=== PATIENT | female | born 1925 | race Caucasian/White ===

== ENCOUNTER 2016-09-30 02:10 | Inpatient (IN) | payer MEDICARE, BC ==
--- NOTE | 2016-09-30 02:35 | ED Physician Chart ---
Chief Complaint/HPI - Patient Information Date Seen:: 09/23/16 Time Seen:: 02:15 Chief Complaint:: generalized weakness History of Present Illness:: patient has had generalized weakness (especially of hands) for three days. Tingling of legs started today. No chest pain or shortness of breath. Allergies:: Allergies Allergy/AdvReac Type Severity Reaction Status Date / Time No Known Allergies Allergy Verified 09/30/16 02:16 Vitals:: Vital Signs - 8 hr 09/30/16 02:17 Temp 97.5 F HR 90 RR 20 BP 135/74 O2 Sat % 97 Historian:: Patient Review of Systems - Review of Systems General/Constitutional: Weakness Skin: No skin lesions Head: No headache Eyes: Acuity change ENT: No earache Neck: No neck pain Cardio Vascular: No chest pain Pulmonary: No SOB GI: No nausea, No vomiting G/U: No dysuria Musculoskeletal: No bone or joint pain Endocrine: No polyuria, No polydipsia Psychiatric: No prior psych history, No homicidal ideation Hematopoietic: No bruising Allergic/Immuno: No urticaria Neurological: No syncope Past Medical History - Past Medical History Past Medical History: DM Family History: HTN Social History: Non Smoker, No Alcohol Surgical History: other (bilateral knee replacements) Psychiatricy History: None Medication: Reviewed Family Medical History - Family Member Mother History Unknown: Yes Physical Exam - Physical Examination General/Constitutional: Awake, Well-developed, well-nourished, No distress Head: Atraumatic Eyes: Lids, conjuctiva normal, PERRL Skin: Nl inspection, No rash ENMT: External ears, nose nl, TM canals nl Neck: No nuchal rigidity Respiratory: Nl effort/Exclusion, Clear to Auscultation, No Wheeze/Rhonchi/Rales Cardio Vascular: RRR GI: No tenderness/rebounding/guarding, No organomegaly : No CVA tenderness Neuro/Psych: No focal deficits Misc: No paraspinal tenderness Labs/Radiology/EKG Results - Lab Results Results: Laboratory Results - last 24 hr 09/30/16 09/30/16 09/30/16 02:35 02:35 02:35 WBC 5.1 RBC 3.78 L Hgb 11.2 L Hct 33.3 L MCV 88.0 MCH 29.7 MCHC Differential 33.7 RDW 13.1 Plt Count 200 MPV 6.7 Neutrophils % 59.2 Lymphocytes % 26.2 Monocytes % 11.3 H Eosinophils % 2.6 Basophils % 0.7 Sodium 139 Potassium 3.7 Chloride 101 Carbon Dioxide 27.4 Anion Gap 14.3 BUN 17 Creatinine 0.7 Est GFR ( Amer) TNP Est GFR (Non-Af Amer) TNP BUN/Creatinine Ratio 24.3 Glucose 122 H Calcium 9.0 Magnesium Troponin I < 0.01 L B-Natriuretic Peptide 33.1 09/30/16 02:35 WBC RBC Hgb Hct MCV MCH MCHC Differential RDW Plt Count MPV Neutrophils % Lymphocytes % Monocytes % Eosinophils % Basophils % Sodium Potassium Chloride Carbon Dioxide Anion Gap BUN Creatinine Est GFR ( Amer) Est GFR (Non-Af Amer) BUN/Creatinine Ratio Glucose Calcium Magnesium 1.8 L Troponin I B-Natriuretic Peptide - EKG Interpretations Rhythm: NSR Gamaliel: normal Rate: 85 Comments:: [facility] ED Septic Shock - . Is Septic Shock (SBP<90, OR Lactate>4 mmol\L) present?: No - <6hrs of presentation: Vital Signs: Vital Signs - 8 hr 09/30/16 02:17 Temp 97.5 F HR 90 RR 20 BP 135/74 O2 Sat % 97 Reassessment (Disposition) - Reassessment Reassessment Condition:: Unchanged - Diagnosis Diagnosis:: anemia; generalized weakness; parasthesias - Patient Disposition Admitted to:: Med/Surg Spoke to:: Clinton Velasco Admitting Medical Physician:: Clinton Velasco Condition at Disposition:: Stable, Unchanged
[2016-09-30 02:46] LABS: % BASOPHILS 0.7 % (0.0-2.0); % EOSINOPHILS 2.6 % (0.0-5.0); % LYMPHOCYTES 26.2 % (20.0-50.0); % MONOCYTES 11.3 % (2.0-10.0); % NEUTROPHILS 59.2 % (40.0-80.0); HEMATOCRIT 33.3 % (35.0-45.0); HEMOGLOBIN 11.2 gm/dL (11.7-16.1); MEAN CORPUSCULAR HEMOGLOBIN 29.7 pg (27.0-31.0); MEAN CORPUSCULAR HGB CONC 33.7 pg (28.0-36.0); MEAN PLATELET VOLUME 6.7 fl; NEUTROPHILE ABSOLUTE 3.1 Th/cmm (1.8-8.0); PLATELET COUNT 200 Th/cmm (150-400); RED BLOOD COUNT 3.78 Mil/cmm (3.80-5.20); RED CELL DISTRIBUTION WIDTH 13.1 % (11.5-20.0); WHITE BLOOD COUNT 5.1 Th/cmm (4.8-10.8)
[2016-09-30 03:00] LABS: ANION GAP 14.3 (7.0-16.0); BUN - UREA NITROGEN 17 mg/dL (7-25); BUN/CREATININE RATIO 24.3; CARBON DIOXIDE 27.4 mEq/L (21.0-31.0); CHLORIDE 101 mEq/L (98-107); CREATININE - SERUM 0.7 mg/dL (0.6-1.2); GLUCOSE 122 mg/dL (70-105); POTASSIUM SERUM 3.7 mEq/L (3.5-5.1); SODIUM SERUM 139 mEq/L (136-145)
[2016-09-30 03:06] LABS: BNP 33.1 pg/mL (5.0-100.0)
[2016-09-30] MEDS: Sodium Chloride 0.9% 1,000 ML IV SCH ×2 (05:46→21:23)
[2016-09-30 06:22] VITALS: BP 140/62
[2016-09-30] MEDS: Morphine Sulfate 2 mg/mL 1mL Syr IVP PRN ×3 (06:29→14:48)
[2016-09-30] MEDS: INSULIN ASPART SLIDING SCALE 100 UNITS/ML UNIT SUBQ SCH ×4 (06:33→21:08)
[2016-09-30] MEDS ORDERED: Potassium Chloride 40 MEQ, Lidocaine 1% 20mL Vial 25 MG in Sodium Chloride 0.9% 250 ML IV PRN (09:07)
[2016-09-30] MEDS ORDERED: Morphine Sulfate 2 mg/mL 1mL Syr IVP PRN (09:07)
[2016-09-30] MEDS ORDERED: Potassium Chloride 20 mEq ER Tab PO PRN (09:07)
[2016-09-30] MEDS ORDERED: Influenza Vaccine 0.5 mL Syr IM ONE (11:00)
[2016-09-30] MEDS ORDERED: Pneumococcal Vaccine 0.5 mL Vial IM ONE (11:00)
--- NOTE | 2016-09-30 11:19 | Diagnostic Imaging Report ---
CHEST X-RAY: AP view INDICATION: Weakness COMPARISON: None FINDINGS: Chronic lung changes are seen with increased left basal lung markings. There may be a hiatal hernia. Heart size normal. Atherosclerotic vascular disease is noted. Degenerative changes of spine and shoulders are noted. IMPRESSION: Chronic lung changes with increased left basal lung markings which may be chronic, however, atelectasis versus infiltrate and small left effusion cannot be excluded. Consider further assessment dedicated PA and lateral views. Possible hiatal hernia. Atherosclerotic vascular disease.
--- NOTE | 2016-09-30 12:33 | History & Physical ---
CHIEF COMPLAINT: Intractable pain and numbness and tingling and shooting pains in the hand and arms bilaterally. HISTORY OF PRESENT ILLNESS: The patient is a pleasant 89-year-old female. She has past medical history of neuropathic pain. However, she states it only started a couple of weeks ago when she takes Neurontin at home. However, last night, the pain was so severe and it was not controlled with the Neurontin, so she came to the ER. She also has history of diabetes and unsteady gait. She is unable to give me full history as she does not know what other medications she takes. She did not bring her home medications. Her niece or another relative will be bringing them later. PAST MEDICAL HISTORY: Significant for diabetes, peripheral neuropathy. SOCIAL HISTORY: She used to work as a secondary school registrar. No history of alcohol, tobacco, or drug abuse. FAMILY HISTORY: Her daughter had breast cancer and ovarian cancer. She is in her 50s now. ALLERGIES: SHE IS APPARENTLY ALLERGIC TO PROCHLORPERAZINE. PAST SURGICAL HISTORY: She has history of bilateral knee replacement. MEDICATIONS: As mentioned above. The patient will have a relative bring her medications. REVIEW OF SYSTEMS: GENERAL: Positive for recent fatigue, but no fevers or chills. HEENT: No recent head trauma, change in vision, taste, hearing, or smell. Oral: No recent pain or discharge. NECK: No recent tracheal deviation or JVD. CARDIOVASCULAR: Denies any chest pain or palpitation. ENDOCRINE: She has a history of diabetes. NEUROLOGIC: Positive for neuropathic pain in upper extremities bilaterally. PSYCHIATRIC: No history of psychosis or hallucinations. ABDOMEN: No recent pain or distention. GASTROINTESTINAL: Denies any nausea, vomiting or diarrhea. PSYCHIATRIC: No history of psychosis or hallucinations or depression. PHYSICAL EXAMINATION: VITAL SIGNS: Temperature 98.5 degrees, heart rate is 88, respirations 18, blood pressure 140/62. No pain. GENERAL: No acute distress, awake, alert, but weak and anxious because of the pain. HEENT: Normocephalic, atraumatic. Pupils are round and reactive to light. NECK: Trachea is midline. No JVD. CARDIOVASCULAR: Regular rate and rhythm. PSYCHIATRIC: No psychosis hallucination. MUSCULOSKELETAL: She has intention tremor of the hands bilaterally, severe, but no tremor while resting. NEUROLOGIC: She has numbness and tingling and shooting pains in upper extremities bilaterally. EXTREMITIES: There is no edema. MUSCULOSKELETAL: Decreased muscle strength in upper and lower extremities. PSYCHIATRIC: No psychosis or hallucinations. RESPIRATORY: Decreased breath sounds bilaterally. LABORATORY DATA: Some of the labs are pending. White count is 5.1, hemoglobin 11.2, platelet count is 200,000. Sodium 139, potassium 3.7, chloride 101, bicarbonate 27.4, BUN 17, creatinine 0.7, glucose 114. Troponin less than 0.01. Magnesium is 1.8. UA and chest x-ray are pending. ASSESSMENT: 1. Intractable bilateral upper extremity pain. 2. Severe peripheral neuropathy. 3. Unstable gait 4. Diabetes mellitus. 5. Hypomagnesemia. 6. Possible Parkinson disease. PLAN: The patient meets the criteria for Parkinson's exam, least clinically speaking. I have started on the Neurontin. I will also consider starting Sinemet and see if there is improvement. C-spine x-ray series has been ordered because of the upper extremity numbness, tingling and pain. Continue fingerstick blood sugars and regular insulin sliding scale. I will replenish the magnesium as well. JOB# [id number]
[2016-09-30] MEDS: Carbidopa/Levodopa 10/100 mg Tab PO SCH ×3 (14:02→21:01)
[2016-09-30 17:32] LABS: URINE COLOR YELLOW; URINE GLUCOSE (UA) NEGATIVE (NEGATIVE)
[2016-09-30 17:33] LABS: URINE BILIRUBIN NEGATIVE (NEGATIVE); URINE BLOOD TRACE (NEGATIVE); URINE KETONE NEGATIVE (NEGATIVE)
[2016-09-30 17:34] LABS: URINE PH 6.5; URINE PROTEIN TRACE mg/dL (NEGATIVE)
[2016-09-30 17:35] LABS: URINE RBC 0-2 /hpf (0-5)
[2016-09-30 17:44] LABS: URINE BACTERIA MANY /hpf (NONE SEEN); URINE EPITHELIAL CELLS NONE SEEN /lpf (FEW)
[2016-09-30] MEDS ORDERED: ROPINIROLE HCL 5 MG PO SCH (21:00)
[2016-10-01] MEDS: Morphine Sulfate 2 mg/mL 1mL Syr IVP PRN ×2 (01:00→16:18)
[2016-10-01 06:26] LABS: % BASOPHILS 0.9 % (0.0-2.0); % EOSINOPHILS 2.5 % (0.0-5.0); % LYMPHOCYTES 20.9 % (20.0-50.0); % MONOCYTES 10.3 % (2.0-10.0); % NEUTROPHILS 65.4 % (40.0-80.0); HEMATOCRIT 34.1 % (35.0-45.0); HEMOGLOBIN 11.8 gm/dL (11.7-16.1); MEAN CELL VOLUME 87.7 fl (81-100); MEAN CORPUSCULAR HEMOGLOBIN 30.5 pg (27.0-31.0); MEAN CORPUSCULAR HGB CONC 34.8 pg (28.0-36.0); MEAN PLATELET VOLUME 7.3 fl; NEUTROPHILE ABSOLUTE 3.7 Th/cmm (1.8-8.0); PLATELET COUNT 180 Th/cmm (150-400); RED BLOOD COUNT 3.88 Mil/cmm (3.80-5.20); RED CELL DISTRIBUTION WIDTH 12.9 % (11.5-20.0); WHITE BLOOD COUNT 5.7 Th/cmm (4.8-10.8)
[2016-10-01 06:53] LABS: ANION GAP 6.4 (7.0-16.0); BUN - UREA NITROGEN 13 mg/dL (7-25); BUN/CREATININE RATIO 18.6; CALCIUM SERUM 8.9 mg/dL (8.6-10.3); CARBON DIOXIDE 27.6 mEq/L (21.0-31.0); CHLORIDE 109 mEq/L (98-107); CREATININE - SERUM 0.7 mg/dL (0.6-1.2); GLUCOSE 109 mg/dL (70-105); SODIUM SERUM 139 mEq/L (136-145)
[2016-10-01] MEDS: INSULIN ASPART SLIDING SCALE 100 UNITS/ML UNIT SUBQ SCH ×4 (07:24→21:06)
[2016-10-01] MEDS: Carbidopa/Levodopa 10/100 mg Tab PO SCH (08:19)
[2016-10-01] MEDS: cefTRIAXone 1 GM in Sodium Chloride 0.9% 50 ML IV SCH (11:41)
[2016-10-01] MEDS: Sodium Chloride 0.9% 1,000 ML IV SCH (17:56)
--- NOTE | 2016-10-01 21:29 | Admit Criteria Form ---
Admit Criteria Forms - Admit Criteria Diagnosis: ANEMIA, IRON DEFICIENCY OR UNSPECIFIED Clinical Indications for Inpatient Care (Place 'X' for any and all applicable criteria): Admission is indicated for ANY ONE of the following(1)(2)(3)(4)(5)(6)(7): [X] I. Inpatient admission required rather than observation care (Also use Anemia, Iron Deficiency or Unspecified: Observation Care guideline as appropriate) because of ANY ONE of the following: [] a) Hemodynamic instability that is severe or persistent [] b) Active bleeding that cannot be rapidly controlled [] c) CVS symptoms (i.e., dyspnea, chest pain, heart failure) that are severe or persistent [] d) Neurologic symptoms (i.e., cognitive impairment, recurrent syncope or near syncope) that are severe or persistent [] e) Cardiac arrhythmias of immediate concern [] f) Acute peripheral ischemia (e.g., pulseless, cool, mottled, or cyanotic extremity) [] g) High-risk low platelet count [] h) Acute renal failure [] i) Ongoing transfusion for blood loss (greater than 2 units) [] j) IV fluid to replace significant ongoing (eg, >24 hours) losses (> 3 L/m2 per day) [] k) Pulmonary artery catheter monitoring [] l) Supplemental oxygen or respiratory treatments for over 24 hours that are performable only in acute inpatient setting [] m) Immediate inpatient surgery [X] n) Other condition, treatment or monitoring requiring inpatient admission [] II Active massive hemorrhage [] III. Active hemolysis with rapidly progressive anemia [A](6) Extended stay beyond goal length of stay may be needed for (17)(18) []a) Diagnosed cause of anemia requiring longer hospitalization (eg, active GI bleeding, immune hemolysis requiring electrophoresis, complications of malignancy requiring acute care []b) Continued emergent anemia indicators (23) []c) Transfusion reactions []d) Associated leukopenia or thrombocytopenia needing inpatient care []e) Active comorbidities (eg, renal failure, heart failure) The original [employer] content created by [employer] has been revised. The portions of the content which have been revised are identified through the use of italic text or in bold. [employer] has neither reviewed nor approved the modified material. All other unmodified content is copyright [employer]. Please see references footnoted in the original [facility] edition 2016 Admit Criteria Met?: Yes
[2016-10-02 06:26] LABS: % BASOPHILS 0.6 % (0.0-2.0); % EOSINOPHILS 0.7 % (0.0-5.0); % MONOCYTES 10.5 % (2.0-10.0); % NEUTROPHILS 79.2 % (40.0-80.0); HEMATOCRIT 34.5 % (35.0-45.0); HEMOGLOBIN 11.5 gm/dL (11.7-16.1); MEAN CELL VOLUME 87.6 fl (81-100); MEAN CORPUSCULAR HEMOGLOBIN 29.2 pg (27.0-31.0); MEAN CORPUSCULAR HGB CONC 33.3 pg (28.0-36.0); MEAN PLATELET VOLUME 7.4 fl; NEUTROPHILE ABSOLUTE 6.7 Th/cmm (1.8-8.0); PLATELET COUNT 184 Th/cmm (150-400); RED BLOOD COUNT 3.94 Mil/cmm (3.80-5.20); RED CELL DISTRIBUTION WIDTH 12.8 % (11.5-20.0)
[2016-10-02 06:41] LABS: WHITE BLOOD COUNT 8.6 Th/cmm (4.8-10.8)
[2016-10-02] MEDS: INSULIN ASPART SLIDING SCALE 100 UNITS/ML UNIT SUBQ SCH ×4 (07:02→22:15)
[2016-10-02 07:05] LABS: ANION GAP 9.4 (7.0-16.0); BUN - UREA NITROGEN 16 mg/dL (7-25); BUN/CREATININE RATIO 22.9; CALCIUM SERUM 8.5 mg/dL (8.6-10.3); CARBON DIOXIDE 23.7 mEq/L (21.0-31.0); CHLORIDE 105 mEq/L (98-107); CREATININE - SERUM 0.7 mg/dL (0.6-1.2); GLUCOSE 121 mg/dL (70-105); POTASSIUM SERUM 4.1 mEq/L (3.5-5.1); SODIUM SERUM 134 mEq/L (136-145)
[2016-10-02] MEDS: Morphine Sulfate 2 mg/mL 1mL Syr IVP PRN (08:08)
[2016-10-02] MEDS: Sodium Chloride 0.9% 1,000 ML IV SCH (08:09)
[2016-10-02] MEDS: cefTRIAXone 1 GM in Sodium Chloride 0.9% 50 ML IV SCH (12:13)
--- NOTE | 2016-10-02 20:38 | Discharge Summary ---
CAUSE OF ADMISSION: The patient is a pleasant 89-year-old female. She has history of neuropathic pain and Parkinson's disease. She states that the pain started a couple of weeks ago and she takes Neurontin at home. The pain was so severe that she came to the ER. She also has history of diabetes and unsteady gait. She was unable to give me full history. She does not know her medication, but her niece brought them in later. ADMITTING DIAGNOSES: 1. Intractable bilateral upper extremity pain. 2. Severe peripheral neuropathy. 3. Unstable gait 4. Diabetes mellitus. 5. Hypomagnesemia. 6. Parkinson's disease with exacerbation. DISCHARGE DIAGNOSES: 1. Intractable bilateral upper extremity pain. 2. Severe peripheral neuropathy. 3. Unstable gait 4. Diabetes mellitus. 5. Hypomagnesemia. 6. Parkinson's disease with exacerbation. SUMMARY OF HOSPITAL COURSE: The patient thought she had Parkinson's, but she was not sure. Later, I reviewed the meds and she does take Requip and she indeed has Parkinson's. She had tremor and had exacerbation as well. I started her on Sinemet. C-spine x-ray was ordered along with UA. She was found to have a UTI. It is E. coli susceptible to Macrobid. Today, she is anxious to go home. She was also given magnesium as a supplement. PHYSICAL EXAMINATION: VITAL SIGNS: Temperature 98.1 degrees, heart rate ____, respirations 18, blood pressure 122/68. No pain. GENERAL: No acute distress, awake. NECK: Trachea is midline. CARDIOVASCULAR: Regular rate and rhythm. SKIN: No rashes. PSYCHIATRIC: No psychosis or hallucinations. NEUROLOGIC: No evidence of acute stroke or seizure activity. Numbness, tingling has improved. Chest x-ray does not show any acute abnormalities. I have also ordered a C-spine x-ray, but the patient does not want to wait, she wants to go home. Chest x-ray shows chronic lung changes with increased left basal lung markings, which may be chronic, possible hiatal hernia. There is a possibility of a possible infiltrate versus atelectasis, but the patient is asymptomatic as far as pneumonia is concerned. The rest of the labs are as the following: UA is positive for UTI. White count is 8.6, hemoglobin 11.5, platelet count is 184,000. Sodium 134, potassium 4.1, chloride 105, bicarbonate 23.7, BUN 16, creatinine 0.7, glucose 119, calcium is 8.5. PROGNOSIS: Fair. ACTIVITY: As tolerated. DISPOSITION: I have offered the patient to do a SNF eval to see if she qualifies it because she lives alone; however, she insists on going home. She states that her niece comes and helps her out. I will also set up home health. MEDICATIONS: I have given her a script for Macrobid 100 mg p.o. b.i.d. for UTI. She is to follow with her primary care doctor within one week of discharge. Over 30 minutes spent on the discharge. JOB# [id number]
[2016-10-03] MEDS: Morphine Sulfate 2 mg/mL 1mL Syr IVP PRN ×2 (01:58→06:16)
[2016-10-03] MEDS: Sodium Chloride 0.9% 1,000 ML IV SCH (06:18)
[2016-10-03] MEDS: INSULIN ASPART SLIDING SCALE 100 UNITS/ML UNIT SUBQ SCH (06:54)
[2016-10-03 07:45] LABS: ANION GAP 7.1 (7.0-16.0); BUN - UREA NITROGEN 14 mg/dL (7-25); BUN/CREATININE RATIO 23.3; CALCIUM SERUM 8.4 mg/dL (8.6-10.3); CHLORIDE 108 mEq/L (98-107); CREATININE - SERUM 0.6 mg/dL (0.6-1.2); GLUCOSE 117 mg/dL (70-105); POTASSIUM SERUM 4.1 mEq/L (3.5-5.1); SODIUM SERUM 134 mEq/L (136-145)
[2016-10-03 08:37] LABS: % BASOPHILS 0.7 % (0.0-2.0); % EOSINOPHILS 2.6 % (0.0-5.0); % LYMPHOCYTES 19.7 % (20.0-50.0); % MONOCYTES 12.7 % (2.0-10.0); % NEUTROPHILS 64.3 % (40.0-80.0); HEMATOCRIT 34.4 % (35.0-45.0); HEMOGLOBIN 11.6 gm/dL (11.7-16.1); MEAN CELL VOLUME 87.9 fl (81-100); MEAN CORPUSCULAR HEMOGLOBIN 29.6 pg (27.0-31.0); MEAN CORPUSCULAR HGB CONC 33.7 pg (28.0-36.0); MEAN PLATELET VOLUME 7.7 fl; PLATELET COUNT 172 Th/cmm (150-400); RED BLOOD COUNT 3.92 Mil/cmm (3.80-5.20); RED CELL DISTRIBUTION WIDTH 12.9 % (11.5-20.0)
[2016-10-03 08:38] LABS: WHITE BLOOD COUNT 6.2 Th/cmm (4.8-10.8)
[2016-10-03] MEDS: cefTRIAXone 1 GM in Sodium Chloride 0.9% 50 ML IV SCH (12:36)
--- NOTE | 2016-10-05 12:09 | Diagnostic Imaging Report ---
Cervical spine 3 views History: Pain, neuropathy Comparison: None Findings: There is mild chronic appearing compression fracture of C6. No evidence of retropulsion. Moderate to advanced degenerative changes are noted with multilevel disc space loss of height greatest at C6/C7 with advanced disc space loss of height at this level. Multilevel marginal osteophytic spurring is noted. Degenerative changes of facet joints are noted. No prevertebral soft tissue swelling. The atlantodental articulation is preserved. IMPRESSION: Mild chronic appearing compression fracture of C6. Please correlate clinically. No evidence of subluxation. If clinically indicated, follow-up CT or MRI would provide for additional detail and assessment Advanced degenerative changes. In the setting of trauma, if clinical symptoms persist and there is continued concern for an occult fracture, follow up exams in 5-7 days is suggested.
== END 2016-10-03 13:30 | DRG 57 ==
LOC: ER 02:10 → MSI 04:15
PROVIDERS: ADMIT General Practice; ATTEND General Practice
DX: G20 Parkinson's disease (principal); E11.42 Type 2 diabetes mellitus with diabetic polyneuropathy; N39.0 Urinary tract infection, site not specified; K44.9 Diaphragmatic hernia without obstruction or gangrene; D64.9 Anemia, unspecified; R26.9 Unspecified abnormalities of gait and mobility; Z96.653 Presence of artificial knee joint, bilateral; B96.20 Unspecified Escherichia coli [E. coli] as the cause of diseases classified elsewhere; E83.42 Hypomagnesemia; Z88.8 Allergy status to other drugs, medicaments and biological substances; Z82.49 Family history of ischemic heart disease and other diseases of the circulatory system; Z80.3 Family history of malignant neoplasm of breast; Z80.41 Family history of malignant neoplasm of ovary
CPT/HCPCS: 36415-UA; 71010-TC; 72040-TC; 72050-TC; 80048-TC; 80162-TC; 81001-TC; 82948-90; 83036-90; 83735-TC; 83880-TC; 84484-TC; 85025-TC; 87086-90; 90732; 93005; 97530; J0696; J1644; J1815; J2060; J2270; J7030; X3904; Z7610